=== PATIENT | female | born 1970 | race Caucasian/White ===

== ENCOUNTER 2018-09-20 15:33 | Outpatient (RCR) | payer BC ==
[2016-03-17 12:41] VITALS: BMI 29.1
[~2018-09-20 15:33] MED LIST: ACE500 PO; ASCO-182 PO; CALC625T69 PO; ESTR0.62 PO; FAM20 PO; HYDR-317 PO; IBU200 PO; IBU800 PO; IBUP800T37 PO; LISI2.5T60 PO; LORA-763 PO; MULT1CAP59 PO; NORG1TAB74 PO; PER PO; [UNRECOGNIZED DRUG - CODE] PO
[2018-09-25] MEDS ORDERED: IOPAMIDOL 76% 75 ML INFUS BTL 75 ML ONE (09:00)
--- NOTE | 2018-09-25 11:49 | RADIOLOGY IMAGING REPORT ---
FACILITY: [facility] PATIENT NAME: Joanne Clemens : 1970 MR: [id number] V: [id number] EXAM DATE: ORDERING PHYSICIAN: AFIA DYE TECHNOLOGIST: Location: [facility] [place] Patient: Joanne Clemens : 1970 Visit/Account:[id number] Date of Sevice: 09/25/2018 ABDOMEN/PELVIS W/WO CONTRAST HISTORY: Left lower quadrant pain TECHNIQUE: CT abdomen and pelvis with and without intravenous contrast. Contiguous axial images of the abdomen and pelvis was performed from the lung bases to the symphysis pubis. One of the following dose optimization techniques was utilized in the performance of this exam: Autom ated exposure control; adjustment of the mA and/or kV according to the patient's size; or use of an i terative reconstruction technique. Specific details can be referenced in the facility's radiology C T exam operational policy. CONTRAST: 75 cc of Isovue-370 COMPARISON: None. FINDINGS: Visualized lung bases: Negative. Hepatobiliary: There is fatty infiltration of the liver. Gallbladder and bile ducts are unremarkabl e. Spleen: Negative. Adrenals: Negative. Kidneys/: No visualized radiopaque renal or ureteral stones. Uterus is absent. Pancreas: Negative. GI: The appendix is normal. Patient is mildly constipated. No bowel obstruction or focal inflammat ion. Vessels/spaces/nodes: Negative. Bones/soft tissues: Patient has a mild scoliosis. IMPRESSION: 1. No acute pathology in the abdomen or pelvis. Report Dictated By: Stevo Romeo MD at 09/25/2018 10:08 AM Report E-Signed By: Stevo Romeo MD at 09/25/2018 11:45 AM WSN:[id number]
== END 2018-09-25 18:00 | disposition home or self-care (01) ==
LOC: CT 15:33
PROVIDERS: ATTEND Obstetrics & Gynecology
DX: R10.2 Pelvic and perineal pain (principal)
CPT/HCPCS: 36415; 74178; 82565; Q9967